=== PATIENT | female | born 1990 | race African-American/Black ===

== ENCOUNTER 2017-02-13 19:35 | Inpatient (IN) | payer OTHER ==
[~2017-02-13 19:35] MED LIST: ELECTROLYTE-148 SOLN 1,000 ML IV SCH
[2017-02-13 21:09] LABS: MCH 29.9 pg (25.7-33.7); MCHC 33.9 g/dl (32.0-36.0); MEAN CELL VOLUME 88.3 fl (80-96); PLATELET COUNT 391 K/MM3 (134-434); RDW 13.9 % (11.6-15.6); WHITE BLOOD COUNT 11.1 K/mm3 (4.0-10.0)
[2017-02-13] MEDS ORDERED: BUTORPHANOL TARTRATE 1 MG/ML VIAL IVPB ONE (21:25)
[2017-02-13] MEDS ORDERED: PROMETHAZINE HCL 25 MG/1 ML VIAL IVPB ONE (21:25)
[2017-02-13 21:28] LABS: ACTIVATED PTT 24.1 SECONDS (26.9-34.4)
[2017-02-13 21:37] LABS: ANION GAP 9 (8-16); CO2 26 mmol/L (21-32); CREATININE 0.6 mg/dL (0.55-1.02); GLUCOSE,RANDOM 119 mg/dL (74-106)
[2017-02-13 22:00] LABS: BASOPHIL (MANUAL) 1 % (0-2.0); MACROCYTOSIS 2+; POLYCHROMASIA 1+; TOTAL CELLS COUNTED 100
[2017-02-13] MEDS ORDERED: FENTANYL/BUPIVACAINE/NS/PF - PCEA - 50 ML DISP.SYRIN EP SCH (22:45)
[2017-02-13 23:06] VITALS: BMI 23.4
[2017-02-14] MEDS ORDERED: METHYLERGONOVINE MALEATE 0.2 MG/1 ML AMP IM ONE (02:15)
--- NOTE | 2017-02-14 02:27 | HP ---
Past Medical History - Primary Care Physician PCP:: abmitted with rupture of membraned . in labor - Admission Chief Complaint: Patient presented to Labor and Delivery complaining of onset of Labor and rupture of membranes History of Present Illness: 26 year old, lmp 05/18/16 EDC 02/17/17 EGA 39 weeks, antepartun care was unremarkable. Antepartum evaluation included: Blood Type is o positive, RPR -negative. Rubella -immune, PPD is negative per pt in February 2016, sickle cell-negative, grp Strep is negative 01/07 Antepartum Course otherwise unremarkable History Source: Patient, Family Member, Caregiver Limitations to Obtaining History: No Limitations, Language Barrier - Past Medical History DIRECTOR OF SECURITY: Yes: Alzheimer's. No: CVA, Dementia, Migraine, Multiple Sclerosis, Peripheral Neuropathy, Parkinson's, Seizure, Syncope, TIA, Vertigo, Other Cardiovascular: Yes: AFIB. No: Aneurysm, Aortic Insufficiency, Aortic Stenosis , CAD, CHF, Deep Vein Thrombosis, HTN, Hyperlipdemia, IA, Mitral Insufficiency, Mitral Stenosis, Murmur, Pulmonary Hypertension, Other Pulmonary: No: Asthma, Bronchitis, Cancer, COPD, O2 Dependent, Pneumonia, Previously Intubated, Pulmonary Embolus, Pulmonary Fibrosis, Sleep Apnea, Other Gastrointestinal: Yes: Ascites, Cancer, Constipation, Diverticulitis, Diverticulosis, Gastritis, GERD, GI Bleed, Inflamatory Bowel Disease, Irritable Bowel Disease, Pancreatitis, Peptic Ulcer Disease, Ulcerative Colitis, Other. No: Crohn's Disease, Esophageal Varices, Hemorrhoids, Hiatal Hernia Hepatobiliary: Yes: Cirrhosis. No: Cholelithiasis, Cholecystitis, Choledocholithiasis, Hepatitis A, Hepatitis B, Hepatitis C, Other Renal/: No: Renal Failure, Renal Inusuff, BPH, Cancer, Hematuria, Hemodialysis , Neurogenic Bladder, Renal Calculi, UTI, Other Reproductive: No: Ectopic , Endometriosis, Fibroids, PID, Polycystic Ovary Syndrome, Postmenopausal, Other ...: 3 ...Para: 1 ...Term: 1 ...: 0 ...Spon : 1 ...Induced : 0 ...Multiple Gestation: 0 ...LMP: 05/18/16 ... Weeks Gestation by Dates: 38.5 ...EDC by Dates: 02/22/17 ...EDC by Sono: 02/17/17 Heme/Onc: Yes: Anemia. No: B12 Deficiency, Bleeding Disorder, Cancer, Current Chemotherapy, Current Radiation Therapy, Hemochromatosis, Hypercoaguable State, Myeloproliferative Synd, Sickle Cell Disease, Sickle Cell Trait, Thrombocytopenia, Other Infectious Disease: Yes: AIDS. No: C-Diff, Herpes Zoster, HIV, MRSA, STD's, Tuberculosis, VREF, Other Psych: Yes: Addictions Musculoskeletal: No: Bursitis, Chronic low back pain, Hemiparesis, Hemiplegia, Osteoarthritis, Paraplegia, Other Rheumatology: Yes: Fibromyalgia ENT: No: Allergic Rhinitis, Sinusitis, Other Endocrine: Yes: Diabetes Mellitus. No: Ferguson's Disease, Jamey's Disease, Diabetes Insipidus, Hyperparathyroidism, Hyperthyroidism, Hypothyroidism, Osteopenia, SIADH, Other - Past Surgical History Past Surgical History: Yes: None Hx Myomectomy: No Hx Transabdominal Cerclage: No - Advance Directives Advance Directives: Yes: Living Will - Smoking History Smoking history: Never smoked Have you smoked in the past 12 months: No - Alcohol/Substance Use Hx Alcohol Use: No Home Medications - Allergies Allergies/Adverse Reactions: Allergies Allergy/AdvReac Type Severity Reaction Status Date / Time No Known Allergies Allergy Verified 02/13/17 20:16 - Home Medications Home Medications: Ambulatory Orders Vitamins (Sjr) - 1 tab PO DAILY 09/20/13 Family Disease History - Family Disease History Family History: Unremarkable Physical Exam - Maternity Vital Signs: Vital Signs Temperature 99.6 F 02/14/17 00:00 Pulse Rate 88 02/13/17 22:30 Respiratory Rate 20 02/13/17 22:30 Blood Pressure 93/61 02/13/17 22:30 O2 Sat by Pulse Oximetry (%) 100 02/13/17 22:30 Constitutional: Yes: Well Nourished, No Distress, Calm Eyes: Yes: WNL HENT: Yes: WNL Neck: Yes: WNL Cardiovascular: Yes: WNL Lungs: Normal air movement Breast(s): Yes: WNL - Abdominal Exam/OB Number of Fetuses: Single Presentation: Vertex Contractions: Yes Regularity: Regular Intensity: Mild/Mod Monitor Mode: External Heart Rate (range): 140 bpm Heart Rate Location: [facility] Category: I Accelerations: None Decelerations: None - Vaginal Exam/OB Vaginal Bleediing: No Speculum Exam: No Dilatation (cm): 5-6cm Effacement (%): 70-80 per Amniotic Membrane Status: Ruptured Nitrazine Test: Positive Amniotic Fluid: Yes: Clear Presentation: Vertex/Position Station: -1 - Physical Exam Musculoskeletal: Yes: WNL Extremities: Yes: WNL Edema: No Integumentary: Yes: WNL Deep Tendon Reflex Grade: Normal +2 ...Motor Strength: WNL Psychiatric: Yes: Alert, Oriented - Labs Lab Results: CBC, BMP 02/13/17 20:48 02/13/17 20:48
[2017-02-14] MEDS ORDERED: WITCH HAZEL 50% (TUCKS) 40 PAD/JAR PAD TP PRN (03:59)
[2017-02-14] MEDS ORDERED: BENZOCAINE 20% 57 GM BOTTLE TP PRN (03:59)
[2017-02-14] MEDS ORDERED: METHYLERGONOVINE MALEATE 0.2 MG/1 ML AMP IM PRN (03:59)
[2017-02-14] MEDS ORDERED: BENZOCAINE 28 GM HEMORRHOIDAL OINTMENT TP PRN (03:59)
[2017-02-14] MEDS ORDERED: BISACODYL 10 MG SUPP.RECT RC PRN (03:59)
[2017-02-14] MEDS ORDERED: DIPHTH,PERTUSS(ACELL),TET 0.5 ML DISP.SYRIN IM ONE (10:00)
[2017-02-14] MEDS: PRENATAL VITAMINS W/ FOLIC ACID TABLET (FP) PO SCH (10:12)
[2017-02-15 07:32] LABS: BASOPHIL 0.3 % (0-2.0); EOSINOPHIL 0.6 % (0-4.5); MCH 29.7 pg (25.7-33.7); MCHC 33.4 g/dl (32.0-36.0); MEAN PLT VOLUME 7.1 fl (7.5-11.1); NEUTROPHILS 73.3 % (42.8-82.8); PLATELET COUNT 327 K/MM3 (134-434); RDW 14.1 % (11.6-15.6); WHITE BLOOD COUNT 19.2 K/mm3 (4.0-10.0)
[2017-02-15] MEDS: ACETAMINOPHEN 325 MG TABLET (FP) PO PRN ×3 (08:22→19:03)
[2017-02-15] MEDS: IBUPROFEN 600 MG TABLET (FP) PO PRN ×2 (08:23→15:34)
--- NOTE | 2017-02-15 08:57 | PN ---
Post Progress Note - Subjective Subjective: Pt seen and evaluated this a.m. Feeling well. Some perineal soreness but otherwise feeling well. VB/lochia minimal and decreasing. Ambulating, voiding , passing flatus. Denies Cp/SOB/F/c/PEARL. Type of Delivery: Vital Signs: Vital Signs Temperature 98.3 F 02/14/17 20:51 Pulse Rate 79 02/14/17 20:51 Respiratory Rate 20 02/14/17 20:51 Blood Pressure 110/73 02/14/17 20:51 O2 Sat by Pulse Oximetry (%) 100 02/14/17 03:15 Breast Exam: Yes: Soft Uterus: Yes: Fundus Firm, Fundus below umbilicus Abdomen/GI: Yes: Abdomen soft, Passing flatus, Tolerating PO. No: Tender Lochia, amount: Small Extremities: Yes: Calves non-tender. No: Edema Perineum: Yes: Laceration (2nd degree repaired) Activity: Ambulating - Labs Labs: CBC WBC 19.2 K/mm3 (4.0-10.0) H D 02/15/17 06:30 RBC 3.65 M/mm3 (3.60-5.2) 02/15/17 06:30 Hgb 10.8 GM/dL (10.7-15.3) 02/15/17 06:30 Hct 32.5 % (32.4-45.2) 02/15/17 06:30 MCV 89.0 fl (80-96) 02/15/17 06:30 MCH 29.7 pg (25.7-33.7) 02/15/17 06:30 MCHC 33.4 g/dl (32.0-36.0) 02/15/17 06:30 RDW 14.1 % (11.6-15.6) 02/15/17 06:30 Plt Count 327 K/MM3 (134-434) 02/15/17 06:30 MPV 7.1 fl (7.5-11.1) L 02/15/17 06:30 Total Counted 100 02/13/17 20:48 Neutrophils % 73.3 % (42.8-82.8) 02/15/17 06:30 Neutrophils % (Manual) 75 % (42.8-82.8) 02/13/17 20:48 Band Neuts % (Manual) 1 % (0-10) 02/13/17 20:48 Lymphocytes % 19.7 % (8-40) D 02/15/17 06:30 Lymphocytes % (Manual) 17 % (8-40) 02/13/17 20:48 Monocytes % 6.1 % (3.8-10.2) 02/15/17 06:30 Monocytes % (Manual) 6 % (3.8-10.2) 02/13/17 20:48 Eosinophils % 0.6 % (0-4.5) 02/15/17 06:30 Basophils % 0.3 % (0-2.0) 02/15/17 06:30 Basophils % (Manual) 1 % (0-2.0) 02/13/17 20:48 Platelet Comment A 02/13/17 20:48 Polychromasia 1+ 02/13/17 20:48 Macrocytosis 2+ 02/13/17 20:48 Problem List - Problems (1) Status post vaginal delivery Code(s): XAV9601 - Assessment/Plan 26 y/o PPD#1 s/p normal - doing wel- - AFVSS - hgb 10.8 post delivery - regular diet, PO pain meds, routine post care
[2017-02-15] MEDS: PRENATAL VITAMINS W/ FOLIC ACID TABLET (FP) PO SCH (09:44)
[2017-02-15] MEDS ORDERED: SENNOSIDES/DOCUSATE COMBO (SENNA PLUS) TABLET (UD) PO PRN (22:00)
[2017-02-16] MEDS: PRENATAL VITAMINS W/ FOLIC ACID TABLET (FP) PO SCH (09:10)
[2017-02-16 11:12] VITALS: BP 93/52; PULSE 77; TEMP 98.8
--- NOTE | 2017-02-16 12:53 | DS ---
Physical Exam-SITE SURVEYOR Vital Signs: Vital Signs Temperature 98.8 F 02/16/17 10:00 Pulse Rate 77 02/16/17 10:00 Respiratory Rate 20 02/16/17 10:00 Blood Pressure 93/52 02/16/17 10:00 O2 Sat by Pulse Oximetry (%) 100 02/14/17 03:15 Labs: CBC, BMP 02/15/17 06:30 02/13/17 20:48 Delivery - Delivery Vaginal Delivery: No Problems Type of Anesthesia: Local, Epidural Episiotomy/Laceration: Vaginal Extension/lac, 2nd degree EBL (cc): 200 Delivery, Single - Stages of Labor Date 1st Stage Initiatied: 02/13/17 Time 1st Stage Initiated: 19:00 Date 2nd Stage Initiated: 02/14/17 Time 2nd Stage Initiated: 01:40 Date of Delivery: 02/14/17 Time of Delivery: 01:59 Time Placenta Delivered: 02:10 - Condition of Registered Nurse Cardiac/Head Waiter Present: No Infant Gender: Male Weight: 8 lb Position: Left, OA Total Hours ROM (Hrs/Mins): 7hrs 25min - 1 Minute Total Score: 9 5 Minutes Total Score: 9 - [place] Feeding Plan Initial Plan: Elected not to breastfeed exclusively throughout hospitalization Discharge Summary Reason For Visit: FOR DELIVERY Procedures: Principal: Normal vaginal delivery Hospital Course: Unremarkable post recovery. Condition: Good - Instructions Diet, Activity, Other Instructions: Regular Diet, breast feeding instructions given perineal care explained continue vitamins follow up in 4-6 weeks or as needed Disposition: HOME - Home Medications Comprehensive Discharge Medication List: Ambulatory Orders Vitamins (Sjr) - 1 tab PO DAILY 09/20/13
== END 2017-02-16 11:40 | disposition home or self-care (01) | DRG 775 ==
LOC: JLDR 19:35 → J3W 02-14 03:50
PROVIDERS: ADMIT Obstetrics & Gynecology; ATTEND Obstetrics & Gynecology
PROC: 10E0XZZ Delivery of Products of Conception, External Approach (ICD-10-PCS; principal; 2017-02-14)
PROC: 0KQM0ZZ Repair Perineum Muscle, Open Approach (ICD-10-PCS; 2017-02-14)
PROC: 0W8NXZZ Division of Female Perineum, External Approach (ICD-10-PCS; 2017-02-14)
DX: O70.1 Second degree perineal laceration during delivery (principal); Z37.0 Single live birth; Z3A.39 39 weeks gestation of pregnancy
CPT/HCPCS: 36415; 59409; 80048; 85025; 85610; 85730; 86593; 86850; 86900; 86901; 90715